=== PATIENT | female | born 1980 | race Caucasian/White ===

== ENCOUNTER 2016-11-10 03:50 | Emergency (ER) | payer OTHER ==
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
[~2016-11-10 03:50] MED LIST: ACCOLATE20 MG PO; ACCUPRIL; ALBUTEROL17 GM; ALBUTEROL17 GM INH; AMARYL PO; AMITRYPTYLINE PO; AMLODIPINE BESY10 MG PO; ATRAC-TAIN142 GM; BACLOFEN10 MG PO; BACTRIM DS TABL1 TA1 PO; BACTRIM DS TABL1 TAB PO; BACTROBAN15 GM; BACTROBAN22 GM; BENTYL10 MG PO; BUPROPION XL300 MG PO; CATAPRES-TTS-20.2 M1 PO; CIPRO PO; CLOBEVATE45 GM TOP; CLONIDINE PO; EFFEXOR XR150 MG PO; EFFEXOR XR75 MG PO; FERREX 150 PLU1 EACH PO; FERRO-TIME325 MG PO; FERROUS SULFATE; FLEXERIL PO; FLEXERIL10 MG PO; FLOVENT DI50 MCG/DIS NS; FOLIC ACID PO; FUROSEMIDE40 MG PO; GILDESS FE 1-21 EACH PO; GLUCOTROL; GLUCOTROL PO; HYDROCODON-ACE1 EAC4 PO; HYDROCODON-ACE1 EAC5 PO; HYDROCODON-ACE1 EAC7 PO; HYDROCODONE-APA1 T44 PO; IBUPROFEN; IBUPROFEN800 MG PO; KLOR-CON; KLOR-CON PO; LASIX PO; LASIX80 MG PO; LEVOTHROID200 MCG PO; LEVOTHYROXINE PO; LIPITOR20 MG PO; LISINOPRIL PO; LISINOPRIL10 MG PO; LORATADINE PO; LOTRISONE CREAM TOP; METAXALONE800 M1 PO; METAXALONE800 MG PO; METFORMIN; METFORMIN PO; NEURONTIN PO; NEURONTIN800 MG PO; NIACIN500 M1 PO; NIASPAN PO; NORVASC PO; NORVASC10 MG PO; OMNARIS12.5 GM INH; ORTHO MICRONO0.35 MG; POTASSIUM CHLO10 MEQ PO; PRINIVIL40 MG PO; PROZAC40 MG PO; SYNTHROID PO; SYNTHROID0.05 MG PO; SYNTHROID300 MCG PO; TIGECYCLINE IV; TOPAMAX50 MG PO; TOPROL XL100 MG PO; TOPROL XL50 MG PO; ULTRAM PO; VENLAFAXINE HC150 M1 PO; VIBRAMYCIN100 M1 PO; VICODIN 5/500 T1 TAB; VICODIN 5/500 T1 TAB PO; VITAMIN D2000 UNIT PO; WELLBUTRIN SR150 MG PO; WELLBUTRIN XL150 MG PO; WELLBUTRIN75 M1 PO; ZESTRIL40 MG PO; ZOFRAN ODT4 MG PO; ZOLOFT PO; [UNRECOGNIZED DRUG - OTHER]
== END 2016-11-10 09:05 | disposition home or self-care (01) ==
LOC: CED 03:50
DX: S13.4XXA Sprain of ligaments of cervical spine, initial encounter (principal); S33.5XXA Sprain of ligaments of lumbar spine, initial encounter; S00.93XA Contusion of unspecified part of head, initial encounter; E11.9 Type 2 diabetes mellitus without complications; I10 Essential (primary) hypertension; J45.909 Unspecified asthma, uncomplicated; F32.9 Major depressive disorder, single episode, unspecified; E78.5 Hyperlipidemia, unspecified; Z88.5 Allergy status to narcotic agent; V49.50XA Passenger injured in collision with unspecified motor vehicles in traffic accident, initial encounter; Y92.410 Unspecified street and highway as the place of occurrence of the external cause
CPT/HCPCS: 70450; 72072; 72100; 72125; 72128; 84703; 99284

== ENCOUNTER → 2016-11-26 | Outpatient (CLI) | payer OTHER ==
[~2016-11-26] MED LIST changes: +BUPROPION HCL75 MG PO; +BUPROPION XL300 M1 PO; +BYDUREON P2 MG/0.65 SUBQ; +CELEXA20 M1 PO; +GABAPENTIN300 MG PO; +HYDROCODON-ACE1 EAC9 PO; +MULTIVITAMINS1 EAC3 PO; +NIACIN PO; +PATIENT'S PHARMACY; +POTASSIUM CITR10 MEQ PO; +TOPAMAX PO; +ZYRTEC10 M2 PO
--- NOTE | ~2016-11-26 | CR127 ---
[facility] A Service of [facility] & [facility] RADIOLOGY TEXT RESULTS PATIENT: ROSE EDMONDS LOCATION: [facility] : 78 UNIT #: [id number] AGE: [address]: Pattie Monet MD SEX: F ORDER DR: [id number] [facility] [address] [place], [place] [address] [id number] O MR#: [id number] Acc #: [id number] NAME: ROSE EDMONDS. : 1980 SEX: F STUDY DATE/TIME: 11/26/2016 11:53 UNIT: [facility] ROOM: STUDY DESCRIPTION: CR Foot Complete Min 3 View Rt Attending Physician: Pattie Monet M.D. Referring Physician: Pattie Monet M.D. Ordering Physician: Pattie Monet M.D. Primary Care Physician: Brittany Gabriel M.D. MEDICAL IMAGING REPORT This report is preliminary unless electronic signature is present EXAM Right foot. HISTORY 6 weeks status post fracture of the fifth metatarsal. TECHNIQUE 3 views of the foot were obtained. FINDINGS 3 views of the foot again demonstrate a transverse fracture at the base of the fifth metatarsal. Fracture is more distracted than on the previous examination and there is limited callus. No additional fractures are seen. IMPRESSION Progressive distraction at the fracture site with limited, if any callus. Findings consistent with delayed union. Dictated by... Al Rivera M.D. THIS IS AN ELECTRONICALLY VERIFIED REPORT Al Rivera M.D. at 11/26/2016 3:45 PM SHANI/estela TD: 11/26/2016 13:59 JOB #: [id number] MEDICAL IMAGING REPORT Page 1 of 1 COPY
== END | disposition home or self-care (01) ==
LOC: CRAD 11:35
DX: S92.351A Displaced fracture of fifth metatarsal bone, right foot, initial encounter for closed fracture (principal)
CPT/HCPCS: 73630

== ENCOUNTER → 2017-01-28 | Outpatient (CLI) | payer OTHER ==
--- NOTE | ~2017-01-28 | CR127 ---
[facility] A Service of [facility] & [facility] RADIOLOGY TEXT RESULTS PATIENT: ROSE EDMONDS LOCATION: [facility] : 78 UNIT #: [id number] AGE: [address]: Pattie Monet MD SEX: F ORDER DR: [id number] [facility] [address] [place], [place] [address] [id number] O MR#: [id number] Acc #: [id number] NAME: ROSE EDMONDS. : 1980 SEX: F STUDY DATE/TIME: 01/28/2017 15:22 UNIT: [facility] ROOM: STUDY DESCRIPTION: CR Foot Complete Min 3 View Rt Attending Physician: Pattie Monet M.D. Ordering Physician: Pattie Monet M.D. Primary Care Physician: Brittany Gabriel M.D. MEDICAL IMAGING REPORT This report is preliminary unless electronic signature is present EXAM Right foot 3 views 01/28/2017 HISTORY Right foot pain laterally status post fall down stairs 3 months ago. Followup fifth metatarsal fracture. FINDINGS 3 views of the right foot demonstrate comminuted transverse fracture at the base of the fifth metatarsal as was seen on previous radiographs of the right foot dated 11/26/2016. The fracture line persists but does appears slightly less distinct compared with the previous examination with only minimal callus formation noted. No new fracture is seen. The bones are normally mineralized. There is soft tissue swelling about the right foot. IMPRESSION Comminuted transverse fracture through the base of the fifth metatarsal with some minimal healing noted since the previous exam dated 11/26/2016. Dictated by... Jatin Moody M.D. THIS IS AN ELECTRONICALLY VERIFIED REPORT Jatin Moody M.D. at 01/29/2017 8:08 AM RIA/florina TD: 01/28/2017 17:49 JOB #: [id number] MEDICAL IMAGING REPORT Page 1 of 1 COPY
== END | disposition home or self-care (01) ==
LOC: CRAD 15:02
DX: S92.351D Displaced fracture of fifth metatarsal bone, right foot, subsequent encounter for fracture with routine healing (principal)
CPT/HCPCS: 73630

== ENCOUNTER 2017-03-19 15:32 | Inpatient (IN) | payer OTHER ==
[~2017-03-19] VITALS: Ht 180.3 cm; Wt 205.4 kg
--- NOTE | ~2017-03-19 | EKG ---
PATIENT: ROSE EDMONDS UNIT #: [id number] Ventricular Rate: 101 BPM Atrial Rate: 101 BPM P-R Interval: 188 ms QRS Duration: 86 ms Q-T Interval: 348 ms QTC Calculation(Bezet): 451 ms P [place]: 37 degrees Calculated R [place]: 55 degrees Calculated T [place]: 24 degrees Diagnosis Line: Sinus tachycardia Diagnosis Line: Low voltage QRS Diagnosis Line: Cannot rule out Septal infarct (cited on or before Diagnosis Line: 15-MAY-2016) Diagnosis Line: Baseline wander Borderline ECG Diagnosis Line: When compared with ECG of 15-MAY-2016 09:05, Diagnosis Line: No significant change was found Diagnosis Line: Confirmed by JOSE SALOMON MD ([id number]) on 03/19/2017 Diagnosis Line: 5:44:33 PM INTERPRETING MD: AIME VERMA
--- NOTE | ~2017-03-19 | DS ---
Unit #: [id number] #: [id number] Patient: INDIA KENT [id number] [address] [address] [id number] I MR#: [id number] NAME: INDIA KENT. ROOM: 323 Age: 37 Sex: F Admission Date: 03/19/2017 : 1980 Discharge Date: 03/26/2017 Attending Physician: Naila Matute M.D. Primary Care Physician: Brittany Gabriel M.D. DISCHARGE SUMMARY FINAL DIAGNOSES 1. Extensive left lower extremity cellulitis. 2. Chronic left lower extremity venous stasis. 3. Gram positive cocci, blood culture positive, which is coag-negative. 4. Acute kidney injury, which is improved. 5. Hypokalemia, supplement potassium was given. 6. Anemia. 7. Morbid obesity. 8. Diabetes mellitus, type 2. 9. Chronic kidney disease. DISCHARGE MEDICATIONS 1. Potassium 10 mEq b.i.d. 2. Tylenol 650 q.4h. p.r.n. 3. Gabapentin 600 mg at bedtime. 4. Topamax 50 mg b.i.d. 5. Wellbutrin continue home dose 375 mg. 6. Celexa 20 mg daily. 7. Glucophage 500 mg daily. 8. Zyrtec 10 mg daily. 9. Please note Norvasc has been discontinued. 10. Metoprolol 50 mg daily. 11. Lasix 20 mg daily. Please note dose of Lasix has been decreased. 12. Lipitor 20 mg daily. 13. Bydureon pen 2 mg subcutaneous weekly. 14. Multivitamin daily. 15. Lutz continue home dose as needed. 16. Ultram on p.r.n. basis. 17. Spironolactone 25 mg daily. 18. Accolate 20 mg daily. 19. Synthroid 300 mcg p.o. daily. 20. Niacin 500 mg daily. 21. Please note the patient received IV vancomycin during hospitalization since admission. 22. The patient will receive outpatient dalbavancin 1500 mg x1 infusion after discharge from hospital. CONSULTATION IN THE HOSPITAL Dr. Carty from Infectious Disease Services. HOSPITAL COURSE Ms. India Kent is a 37-year-old, morbidly obese female, who has chronic lymphedema, chronic venous stasis came with a complaint of left Unit #: [id number] #: [id number] Patient: INDIA KENT lower extremity cellulitis. The patient was started on IV vancomycin. Dr. Carty from Infectious Disease was consulted. The patient did have elevated lactic acid and slightly hypotensive. There was a question of sepsis, although that has resolved. The patient's blood pressure medications have been restarted. The patient did have acute renal failure on chronic kidney disease, Zestril was held. Dose of Zestril has been decreased. The patient was seen by Dr. Carty. The patient's one of the blood culture did grow gram-positive cocci, possible skin contaminant, but the patient will be discharged home on IV antibiotic and discharged short-stay tomorrow. The patient does verbalize understanding. EXAMINATION ON DISCHARGE VITAL SIGNS: Blood pressure is 130/75, respiratory rate 20, pulse is 81, temperature 98.2, and oxygen saturation is 95%. HEENT: Head is normocephalic. CHEST: Fair air entry. EXTREMITIES: Still redness and swelling is present, most likely swelling is chronic. DISCHARGE INSTRUCTIONS 1. Follow up with primary care provider in 1 week. 2. CBC and BMP in 1 week. 3. Plan of care has been discussed with the patient. Dictated by... Balta Robles/sascha TD: 03/27/2017 03:34 JOB #: [id number] DISCHARGE SUMMARY Page 1 of 1 X Naila Matute MD X DISCHARGE SUMMARY
--- NOTE | ~2017-03-19 | HP ---
Unit #: [id number] #: [id number] Patient: INDIA KENT [id number] [address] [address] [id number] MR#: [id number] NAME: INDIA KENT. ROOM: 323 Age: 37 Sex: F Admission Date: 03/19/2017 : 1980 Attending Physician: Ankush Schulte M.D. Primary Care Physician: Brittany Gabriel M.D. HISTORY AND PHYSICAL ADMISSION DIAGNOSES 1. Left lower extremity cellulitis. 2. Chronic lymphedema. 3. Questionable sepsis. 4. Acute kidney injury on chronic kidney disease. 5. Morbid obesity. 6. Hypertension. 7. Diabetes. 8. Depression. 9. Dyslipidemia. HISTORY OF PRESENT ILLNESS Miss India Kent is a 37-year-old, female patient of Dr. Brittany Gabriel with the past medical history of morbid obesity, hypertension, diabetes and dyslipidemia, along with the chronic lower extremity lymphedema, comes to the emergency room with the complaints of the chills, nausea and vomiting and erythema and induration to a left lower extremity. Her entire left lower extremity from the ankle to the knee looks red, indurated and painful, warm to the touch. She states that she did have the cellulitis with the similar episode prior requiring debridement. She denies any chest pain, denies any cough, shortness of air, dizziness, headache, lightheadedness, syncope or presyncope, denies any abdominal pain or diarrhea. REVIEW OF SYSTEMS A 12-point review of systems on this patient is basically negative except as above. PAST MEDICAL HISTORY Past medical history is significant for: 1. History of, again, chronic lymphedema. 2. Chronic kidney disease. 3. Diabetes. 4. Hypertension. 5. Dyslipidemia. 6. Depression. 7. Along with the morbid obesity. PAST SURGICAL HISTORY Just debridement of the lower extremity cellulitis. HOME MEDICATIONS Home medications on this female include multivitamins, niacin, metformin, Unit #: [id number] #: [id number] Patient: INDIA KENT gabapentin, Zestril, Lasix, , [place], Ultram, Accolate, Lipitor, bupropion, Zyrtec, Celexa, Synthroid, Toprol XL, Topamax, Norvasc and potassium pills. ALLERGIES Penicillin. SOCIAL HISTORY No history of tobacco, alcohol or illicit drugs. FAMILY HISTORY Significant for heart disease and cardiac arrest on the father's side. PHYSICAL EXAMINATION GENERAL: On the physical exam the patient is a 37-year-old morbidly obese female, currently not in acute distress. VITAL SIGNS: Temperature 98.9, pulse 109, respirations 22, temperature 96/54. HEENT: Head is atraumatic. Pupils equal, round and reactive to light and accommodation. Extraocular muscles intact. Oropharynx clear. NECK: Supple. No mass. No JVD. No bruits. CHEST: Diminished bilaterally. CARDIOVASCULAR EXAMINATION: S1, S2. No murmurs. ABDOMEN: Abdomen is obese, nontender. Bowel sounds are distant and diminished. EXTREMITIES: Lower extremities with the significant erythema and induration along with some tenderness and hot to touch as described above in HPI from the angle all the way to the knee. She does have a significant lower extremity lymphedema on top of the cellulitis with is chronic, meaning lymphedema is chronic. NEUROLOGIC: Neurologically the patient is grossly intact without any focal deficits. DIAGNOSTIC STUDIES LABORATORY: Chemistry significant for a BUN and creatinine of 46 and 2.6, blood glucose of 184, sodium 132, chloride 99, bicarb was 20, albumin 3.1, alkaline phosphatase 108, lactic acid elevated at 2.4. Hematology: White count of 21,000 and hemoglobin and hematocrit 10.7 and 33.6. ASSESSMENT AND PLAN 1. Lower extremity cellulitis with the chronic lymphedema: Started the Levaquin and IV vancomycin with will be continued. Dr. Lipscomb has been consulted. 2. Questionable sepsis with elevated lactic acid and slightly hypotensive: Will hold the amlodipine, hold Zestril, initiate the sepsis protocol, follow up on blood cultures, again continue current antibiotics and follow up on ID evaluation. 3. History of hypertension as above, now hypotensive: Continue just Toprol. At this point monitor closely. IV fluids per sepsis protocol. Holding Zestril. 4. Acute renal failure on chronic kidney disease: Hold Zestril. Hold Lasix. Dr. Donal Segundo to follow. Avoid nephrotoxics. 5. GI and DVT prophylaxis with Pepcid and Lovenox. 6. Morbid obesity: On a weight management program by primary care. 7. Diabetes: Hold metformin secondary to renal failure. Cover with the sliding scale. 8. Anemia of chronic disease, looks like at the baseline. Unit #: [id number] #: [id number] Patient: INDIA KENT Dictated by Caio Le M.D. OC/cf TD: 03/19/2017 21:45 JOB #: [id number] HISTORY AND PHYSICAL Page 1 of 1 X Caio Le MD X HISTORY AND PHYSICAL
[~2017-03-19 15:32] MED LIST changes: -BUPROPION HCL75 MG PO; -BUPROPION XL300 M1 PO; -BYDUREON P2 MG/0.65 SUBQ; -CELEXA20 M1 PO; -GABAPENTIN300 MG PO; -HYDROCODON-ACE1 EAC9 PO; -MULTIVITAMINS1 EAC3 PO; -NIACIN PO; -PATIENT'S PHARMACY; -POTASSIUM CITR10 MEQ PO; -TOPAMAX PO; -ZYRTEC10 M2 PO
[2017-03-19 16:39] LABS: BASOPHIL% 0.2 % (0-2.5); DIFF IND YES; EOSINOPHIL# 0.3 X10e3 (0-0.7); EOSINOPHIL% 1.2 % (0.0-7.0); HEMATOCRIT 33.6 % (35.0-45.0); HEMOGLOBIN 10.7 gm/dL (12.0-16.0); LYMPHOCYTE# 2.5 X10e3 (1.0-3.5); LYMPHOCYTE% 11.8 % (17.0-45.0); MEAN CELL VOLUME 95.1 FL (83-96); MEAN CORPUSCULAR HEMOGLOBIN 30.2 PG (28-34); MEAN CORPUSCULAR HGB CONC 31.8 g/dL (30-36); MONOCYTE# 1.1 X10e3 (0-1.0); MONOCYTE% 4.9 % (3.0-12.0); NEUTROPHIL# 17.6 X10e3 (1.5-7.1); NEUTROPHIL% 81.9 % (40-75); PLATELET COUNT 226 X10e3 (140-420); RED BLOOD COUNT 3.54 X10e (3.90-5.30); RED CELL DISTRIBUTION WIDTH 15.3 % (11.0-15.5); WHITE BLOOD COUNT 21.5 X10e3 (4.0-10.5)
[2017-03-19] MEDS ORDERED: PATIENT'S PHARMACY (16:46)
[2017-03-19] MEDS ORDERED: METFORMIN PO (16:47)
[2017-03-19] MEDS ORDERED: NIACIN PO (16:47)
[2017-03-19] MEDS ORDERED: MULTIVITAMINS1 EAC3 PO (16:47)
[2017-03-19] MEDS ORDERED: LASIX PO (16:48)
[2017-03-19] MEDS ORDERED: LISINOPRIL PO (16:48)
[2017-03-19] MEDS ORDERED: BYDUREON P2 MG/0.65 SUBQ (16:48)
[2017-03-19] MEDS ORDERED: GABAPENTIN300 MG PO (16:48)
[2017-03-19] MEDS ORDERED: HYDROCODON-ACE1 EAC9 PO (16:49)
[2017-03-19] MEDS ORDERED: ACCOLATE20 MG PO (16:49)
[2017-03-19] MEDS ORDERED: ULTRAM PO (16:49)
[2017-03-19] MEDS ORDERED: LIPITOR20 MG PO (16:50)
[2017-03-19] MEDS ORDERED: BUPROPION XL300 M1 PO (16:50)
[2017-03-19] MEDS ORDERED: ZYRTEC10 M2 PO (16:50)
[2017-03-19] MEDS ORDERED: SYNTHROID300 MCG PO (16:50)
[2017-03-19] MEDS ORDERED: CELEXA20 M1 PO (16:50)
[2017-03-19] MEDS ORDERED: BUPROPION HCL75 MG PO (16:50)
[2017-03-19] MEDS ORDERED: NORVASC10 MG PO (16:51)
[2017-03-19] MEDS ORDERED: TOPROL XL50 MG PO (16:51)
[2017-03-19] MEDS ORDERED: POTASSIUM CITR10 MEQ PO (16:51)
[2017-03-19] MEDS ORDERED: TOPAMAX PO (16:51)
[2017-03-19 17:04] LABS: ALBUMIN SERUM 3.1 g/dL (3.5-5.0); BILIRUBIN, DIRECT 0.1 mg/dL (0.0-0.2); BILIRUBIN,INDIRECT 0.7 mg/dL (0.0-0.9); BILIRUBIN,TOTAL 0.8 mg/dL (0.2-2.0); BUN/CREATININE RATIO 17.69; CALCIUM SERUM 8.9 mg/dL (8.4-10.2); CREATININE SERUM 2.6 mg/dL (0.6-1.4); GLOM FILT RATE Estimated 22.5 mL/min (>60); POTASSIUM 3.8 mmol/L (3.5-5.1); PROTEIN TOTAL SERUM 8.4 g/dL (6.0-8.3)
[2017-03-19 18:07] LABS: PLATELET ESTIMATE NORMAL (NORMAL)
[2017-03-19 18:08] LABS: ANISOCYTOSIS MOD; POIKILOCYTOSIS SL
[2017-03-19 20:14] LABS: POC - TROPONIN <0.05 ng/mL (<=0.05)
[2017-03-20 05:32] LABS: BASOPHIL# 0.1 X10e3 (0-0.3); BASOPHIL% 0.3 % (0-2.5); DIFF IND NO; EOSINOPHIL# 0.3 X10e3 (0-0.7); EOSINOPHIL% 1.9 % (0.0-7.0); HEMATOCRIT 28.8 % (35.0-45.0); HEMOGLOBIN 9.1 gm/dL (12.0-16.0); LYMPHOCYTE# 2.7 X10e3 (1.0-3.5); LYMPHOCYTE% 16.6 % (17.0-45.0); MEAN CORPUSCULAR HEMOGLOBIN 30.2 PG (28-34); MEAN CORPUSCULAR HGB CONC 31.7 g/dL (30-36); MEAN PLATELET VOLUME 8.1 FL (6.5-11.5); MONOCYTE# 1.1 X10e3 (0-1.0); MONOCYTE% 6.6 % (3.0-12.0); NEUTROPHIL# 12.1 X10e3 (1.5-7.1); NEUTROPHIL% 74.6 % (40-75); PLATELET COUNT 195 X10e3 (140-420); RED BLOOD COUNT 3.03 X10e (3.90-5.30); RED CELL DISTRIBUTION WIDTH 15.1 % (11.0-15.5); WHITE BLOOD COUNT 16.2 X10e3 (4.0-10.5)
[2017-03-20 05:40] LABS: BUN/CREATININE RATIO 20.83; CALCIUM SERUM 8.3 mg/dL (8.4-10.2); CREATININE SERUM 2.4 mg/dL (0.6-1.4); GLOM FILT RATE Estimated 24.8 mL/min (>60); POTASSIUM 3.8 mmol/L (3.5-5.1)
[2017-03-21 07:29] LABS: BUN/CREATININE RATIO 25.38; CALCIUM SERUM 8.6 mg/dL (8.4-10.2); CREATININE SERUM 1.3 mg/dL (0.6-1.4); MAGNESIUM 1.7 mg/dL (1.6-3.0)
[2017-03-21 09:25] LABS: HEMATOCRIT 32.3 % (35.0-45.0); HEMOGLOBIN 10.3 gm/dL (12.0-16.0); MEAN CELL VOLUME 94.3 FL (83-96); MEAN CORPUSCULAR HEMOGLOBIN 30.1 PG (28-34); MEAN CORPUSCULAR HGB CONC 31.9 g/dL (30-36); MEAN PLATELET VOLUME 7.6 FL (6.5-11.5); RED BLOOD COUNT 3.43 X10e (3.90-5.30); WHITE BLOOD COUNT 9.3 X10e3 (4.0-10.5)
[2017-03-22 06:05] LABS: HEMATOCRIT 28.9 % (35.0-45.0); HEMOGLOBIN 9.4 gm/dL (12.0-16.0); MEAN CELL VOLUME 93.8 FL (83-96); MEAN CORPUSCULAR HEMOGLOBIN 30.4 PG (28-34); MEAN CORPUSCULAR HGB CONC 32.4 g/dL (30-36); MEAN PLATELET VOLUME 7.8 FL (6.5-11.5); RED BLOOD COUNT 3.08 X10e (3.90-5.30); RED CELL DISTRIBUTION WIDTH 14.7 % (11.0-15.5); WHITE BLOOD COUNT 7.2 X10e3 (4.0-10.5)
[2017-03-22 06:42] LABS: ALBUMIN SERUM 2.5 g/dL (3.5-5.0); BILIRUBIN,TOTAL 0.4 mg/dL (0.2-2.0); BUN/CREATININE RATIO 15.45; CREATININE SERUM 1.1 mg/dL (0.6-1.4); GLOM FILT RATE Estimated 63.7 mL/min (>60); POTASSIUM 3.8 mmol/L (3.5-5.1); PROTEIN TOTAL SERUM 6.9 g/dL (6.0-8.3)
[2017-03-22 17:27] LABS: URINE SOURCE CLEAN CATCH
[2017-03-22 17:34] LABS: URINE APPEARANCE CLEAR; URINE BILIRUBIN NEG (NEG); URINE BLOOD 3+ (NEG); URINE COLOR YELLOW; URINE GLUCOSE 500 MG/DL (NEG); URINE KETONE NEG (NEG); URINE LEUKOCYTE ESTERASE TRACE (NEG); URINE NITRATE NEG (NEG); URINE PH 5.5 (5-8); URINE PROTEIN 1+ (NEG); URINE SPECIFIC GRAVITY 1.019 (1.003-1.035); URINE UROBILINOGEN 0.2 MG/DL (NEG)
[2017-03-22 17:35] LABS: URBCS1 AUWI INNUM /[HPF] (0-2); URINE BACTERIA AUWI NEG (NEGATIVE); URINE SQUAMOUS EPITHELIAL CELL NONE SEEN /[HPF]; UWBCS1 AUWI 0-2 (0-5)
[2017-03-22 17:37] LABS: CULTURE INDICATED? NO
[2017-03-23 08:28] LABS: HEMATOCRIT 30.2 % (35.0-45.0); HEMOGLOBIN 9.7 gm/dL (12.0-16.0); MEAN CELL VOLUME 94.1 FL (83-96); MEAN CORPUSCULAR HEMOGLOBIN 30.2 PG (28-34); MEAN CORPUSCULAR HGB CONC 32.1 g/dL (30-36); MEAN PLATELET VOLUME 7.6 FL (6.5-11.5); RED BLOOD COUNT 3.21 X10e (3.90-5.30); RED CELL DISTRIBUTION WIDTH 15.1 % (11.0-15.5); WHITE BLOOD COUNT 9.4 X10e3 (4.0-10.5)
[2017-03-23 08:59] LABS: CREATININE SERUM 1.1 mg/dL (0.6-1.4); GLOM FILT RATE Estimated 63.7 mL/min (>60); POTASSIUM 3.5 mmol/L (3.5-5.1)
[2017-03-24 06:01] LABS: HEMATOCRIT 28.5 % (35.0-45.0); HEMOGLOBIN 9.2 gm/dL (12.0-16.0); MEAN CELL VOLUME 93.9 FL (83-96); MEAN CORPUSCULAR HEMOGLOBIN 30.3 PG (28-34); MEAN CORPUSCULAR HGB CONC 32.3 g/dL (30-36); MEAN PLATELET VOLUME 6.9 FL (6.5-11.5); RED BLOOD COUNT 3.03 X10e (3.90-5.30); RED CELL DISTRIBUTION WIDTH 15.5 % (11.0-15.5); WHITE BLOOD COUNT 9.2 X10e3 (4.0-10.5)
[2017-03-24 06:29] LABS: CALCIUM SERUM 8.8 mg/dL (8.4-10.2); CREATININE SERUM 1.1 mg/dL (0.6-1.4); GLOM FILT RATE Estimated 63.7 mL/min (>60); POTASSIUM 3.5 mmol/L (3.5-5.1)
[2017-03-26 08:20] LABS: BUN/CREATININE RATIO 10.9; CREATININE SERUM 1.1 mg/dL (0.6-1.4); GLOM FILT RATE Estimated 63.7 mL/min (>60); MAGNESIUM 1.7 mg/dL (1.6-3.0); PHOSPHOROUS 4.8 mg/dL (2.5-4.6); POTASSIUM 3.8 mmol/L (3.5-5.1)
== END 2017-03-26 16:26 | disposition home or self-care (01) | DRG 872 ==
LOC: CED 15:32 → C3A PCU 18:30 → CED 18:30 → CEDOF 18:30 → C3A PCU 19:34 → CED 19:34 → CEDOF 19:34 → C3A PCU 21:26
PROVIDERS: Emergency Medicine; Hospitalist; Internal Medicine; Internal Medicine Nephrology; Physician Assistant Medical
DX: A41.9 Sepsis, unspecified organism (principal); E11.22 Type 2 diabetes mellitus with diabetic chronic kidney disease; N17.9 Acute kidney failure, unspecified; E66.01 Morbid (severe) obesity due to excess calories; N18.3 Chronic kidney disease, stage 3 (moderate); L03.116 Cellulitis of left lower limb; I87.8 Other specified disorders of veins; E87.6 Hypokalemia; D64.9 Anemia, unspecified; I12.9 Hypertensive chronic kidney disease with stage 1 through stage 4 chronic kidney disease, or unspecified chronic kidney disease; Z79.84 Long term (current) use of oral hypoglycemic drugs; R80.9 Proteinuria, unspecified; F32.9 Major depressive disorder, single episode, unspecified; E78.5 Hyperlipidemia, unspecified
CPT/HCPCS: 36415; 80048; 80053; 80076; 80202; 81003; 82553; 82947; 83605; 83735; 84100; 84484; 85025; 85027; 87040; 93005; 96360; 97163; 97166; 99284; G8978-GP; G8979-GP; G8980-GP; G8987-GO; G8988-GO; G8989-GO; J1650; J1815; J1956; J3370

== ENCOUNTER → 2017-03-26 | Outpatient (CLI) | payer OTHER ==
[~2017-03-26] MED LIST changes: +BUPROPION HCL75 MG PO; +BUPROPION XL300 M1 PO; +BYDUREON P2 MG/0.65 SUBQ; +CELEXA20 M1 PO; +GABAPENTIN300 MG PO; +HYDROCODON-ACE1 EAC9 PO; +MULTIVITAMINS1 EAC3 PO; +NIACIN PO; +PATIENT'S PHARMACY; +POTASSIUM CITR10 MEQ PO; +TOPAMAX PO; +ZYRTEC10 M2 PO
== END | disposition home or self-care (01) ==
LOC: CSSDAY 03-25 11:00
DX: L03.116 Cellulitis of left lower limb (principal); Z79.2 Long term (current) use of antibiotics
CPT/HCPCS: 96365; 96366; J2407; J7060

== ENCOUNTER → 2017-05-26 | Outpatient (CLI) | payer OTHER ==
--- NOTE | ~2017-05-26 | CR169 ---
[facility] A Service [facility] RADIOLOGY TEXT RESULTS PATIENT: ROSE EDMONDS LOCATION: [facility] : 78 UNIT #: [id number] AGE: [address]: Brittany Gabriel MD SEX: F ORDER DR: [id number] [facility]. [place], [place] [address] [id number] O MR#: [id number] Acc #: [id number] NAME: ROSE EDMONDS : 1980 SEX: F STUDY DATE/TIME: 05/26/2017 14:42 UNIT: [facility] ROOM: STUDY DESCRIPTION: CR Knee 2 Views Lt Attending Physician: Brittany Gabriel M.D. Referring Physician: Brittany Gabriel M.D. Ordering Physician: Brittany Gabriel M.D. Primary Care Physician: Giuseppe Linares M.D. MEDICAL IMAGING REPORT This report is preliminary unless electronic signature is present EXAM 2 views left knee, 05/26/2017. HISTORY Left knee pain for 6 months after a fall. COMPARISON Left knee radiographs, 11/26/2015. FINDINGS Study is attenuated secondary to patient's body habitus. Proliferative tricompartment marginal osteophytes are present. There is advanced degenerative narrowing of patellofemoral and medial compartments of the left knee. Findings appear similar to prior exam. No fracture. No dislocation. No definite joint effusion. No osteolytic or osteoblastic abnormality. IMPRESSION Advanced degenerative changes of the left knee, greatest in the patellofemoral and medial compartments. No acute osseous abnormality. Dictated by... Damaris Chris M.D. THIS IS AN ELECTRONICALLY VERIFIED REPORT Damaris Chris M.D. at 05/27/2017 9:40 AM NIGEL/veto TD: 05/26/2017 19:24 JOB #: [id number] MEDICAL IMAGING REPORT [facility] A Service [facility] RADIOLOGY TEXT RESULTS PATIENT: ROSE EDMONDS LOCATION: [facility] #: [id number] : [birth year] UNIT #: [id number] AGE: [address]: Brittany Gabriel MD SEX: F ORDER DR: Page 1 of 1 COPY
--- NOTE | ~2017-05-26 | CR127 ---
[facility] A Service of [facility] RADIOLOGY TEXT RESULTS PATIENT: ROSE EDMONDS LOCATION: [facility] : 78 UNIT #: [id number] AGE: [address]: Brittany Gabriel MD SEX: F ORDER DR: [id number] [facility]. [place], [place] [address] [id number] O MR#: [id number] Acc #: [id number] NAME: ROSE EDMONDS : 1980 SEX: F STUDY DATE/TIME: 05/26/2017 14:41 UNIT: [facility] ROOM: STUDY DESCRIPTION: CR Foot Complete Min 3 View Rt Attending Physician: Brittany Gabriel M.D. Referring Physician: Brittany Gabriel M.D. Ordering Physician: Brittany Gabriel M.D. Primary Care Physician: Giuseppe Linares M.D. MEDICAL IMAGING REPORT This report is preliminary unless electronic signature is present EXAM 3 views of the right foot. DATE: 05/26/2017 HISTORY 37-year-old female with complaints of right foot pain after falling off exam table 7 months ago. COMPARISON Right foot radiographs 01/28/2017 FINDINGS Mildly displaced transversely oriented fracture of the proximal fifth metatarsal with 4 mm proximal displacement of the main fracture fragment. The displacement appears slightly increased compared to 01/28/2017. There is no evidence of osseous union. No new fracture is seen. Prominent calcaneal spurs. No retained radiopaque foreign body. IMPRESSION 1. Slight increased proximal displacement of the proximal fifth metatarsal fragment since 01/28/2017. No evidence of osseous union of the proximal fifth metatarsal fracture site. Dictated by... Damaris Chris M.D. THIS IS AN ELECTRONICALLY VERIFIED REPORT Damaris Chris M.D. at 05/27/2017 9:40 AM NIGEL/zulema TD: 05/26/2017 19:12 [facility] A Service of [facility] RADIOLOGY TEXT RESULTS PATIENT: ROSE EDMONDS LOCATION: [facility] : [birth year] UNIT #: [id number] AGE: [address]: Brittany Gabriel MD SEX: F ORDER DR: MIGUEL #: [id number] MEDICAL IMAGING REPORT Page 1 of 1 COPY
--- NOTE | ~2017-05-26 | CR170 ---
[facility] A Service [facility] RADIOLOGY TEXT RESULTS PATIENT: ROSE EDMONDS LOCATION: [facility] : 78 UNIT #: [id number] AGE: [address]: Brittany Gabriel MD SEX: F ORDER DR: [id number] [facility]. [place], [place] [address] [id number] O MR#: [id number] Acc #: [id number] NAME: ROSE EDMONDS : 1980 SEX: F STUDY DATE/TIME: 05/26/2017 14:42 UNIT: [facility] ROOM: STUDY DESCRIPTION: CR Knee 2 Views Rt Attending Physician: Brittany Gabriel M.D. Referring Physician: Brittany Gabriel M.D. Ordering Physician: Brittany Gabriel M.D. Primary Care Physician: Giuseppe Linares M.D. MEDICAL IMAGING REPORT This report is preliminary unless electronic signature is present EXAM Two views right knee. Date: 05/26/2017 HISTORY A 37-year-old female with complaints of right knee pain for 6 months after falling. COMPARISON Right knee radiographs 11/26/2015. FINDINGS Study is attenuated secondary to patient's body habitus. There is severe narrowing of the medial compartment and patellofemoral compartment with marked, proliferative tricompartment osteophyte formation. No fracture. No joint dislocation. No joint effusion. IMPRESSION Severe degenerative changes of the right knee, greatest in the patellofemoral and medial compartments. No acute findings or significant change compared to 11/26/2015. Dictated by... Damaris Chris M.D. THIS IS AN ELECTRONICALLY VERIFIED REPORT Damaris Chris M.D. at 05/27/2017 9:40 AM NIGEL/cony TD: 05/26/2017 19:11 JOB #: [id number] [facility] A Service of [facility] RADIOLOGY TEXT RESULTS PATIENT: ROSE EDMONDS LOCATION: [facility] #: [id number] : [birth year] UNIT #: [id number] AGE: [address]: Brittany Gabriel MD SEX: F ORDER DR: MEDICAL IMAGING REPORT Page 1 of 1 COPY
== END | disposition home or self-care (01) ==
LOC: CRAD 14:18
DX: S89.92XD Unspecified injury of left lower leg, subsequent encounter (principal); S89.91XD Unspecified injury of right lower leg, subsequent encounter; S99.921D Unspecified injury of right foot, subsequent encounter; M17.0 Bilateral primary osteoarthritis of knee; S92.351D Displaced fracture of fifth metatarsal bone, right foot, subsequent encounter for fracture with routine healing
CPT/HCPCS: 73560; 73630